=== PATIENT | female | born 1970 | race Two or more races ===

== ENCOUNTER → 2025-05-14 | Outpatient (CLI) | payer OTHER, SELFPAY ==
--- NOTE | 2025-05-14 13:30 | XR_ITS ---
Examination: Breast ultrasound, unilateral, right complete Date and time of exam: May 14, 2025 1333 hours INDICATIONS: Mammogram February 18, 2025 10 mm mass lower inner right breast Technique: Real-time burton scale ultrasonographic imaging performed right breast including all 4 quadrants as well as nipple retroareolar and axillary region. Findings: No cystic or solid mass IMPRESSION: BI-RADS Category 1: Negative study
--- NOTE | 2025-05-14 14:00 | XR_ITS ---
Examination: Diagnostic digital mammography, unilateral, right Computer aided detection 3-D breast Tomosynthesis, unilateral Date and time of exam: May 14, 2025 1345 hours INDICATIONS: Outside mammogram February 18, 2025 10 mm mass lower inner quadrant right breast Technique: Nonmagnified MLO, CC views of the right breast have been obtained, reconstructed from 3-D Tomosynthesis images. R2 computer aided detection program utilized for evaluation of suspicious masses and/or abnormal calcifications. 3-D Tomosynthesis images obtained. Findings: Scattered areas of fibroglandular density 10 mm partially circumscribed nodule is confirmed on the spot compression view inner right breast Impression: BI-RADS category 3: Probably benign findings One additional 6 month right mammogram follow-up is needed to document stability of focal asymmetry inner right breast described above
== END | disposition home or self-care (01) ==
PROVIDERS: PCP Physician Assistant; Referring Provider Physician Assistant; Visit Provider Physician Assistant
DX: R92.331 Mammographic heterogeneous density, right breast (principal); N64.89 Other specified disorders of breast
CPT/HCPCS: 76641; 77061; 77065; G0279